=== PATIENT | male | born 1950 | race Caucasian/White ===

== ENCOUNTER 2017-06-22 09:52 | Emergency (ER) | payer MEDICARE, OTHER ==
[2017-06-22] MEDS ORDERED: ASPIRIN 81 MG TABLET, CHEWABLE PO ONE (10:58)
--- NOTE | 2017-06-22 11:00 | ER Document Report ---
ED Medical Screen (RME) - General Chief Complaint: Neck Problem Stated Complaint: PAIN ALL OVER Time Seen by Provider: 06/22/17 10:51 Mode of Arrival: Ambulatory Information source: Patient Notes: Patient presents complaining of left-sided neck pain that radiates to the back of his head and upper back area that started 4 days ago. Patient states that he developed bilateral upper abdominal side pain yesterday. Patient complains of worsening back pain today. Patient states that he developed chest pain while here in the emergency department at 10 AM. Patient does report mild cough. Patient denies any lightheadedness or dizziness. hx: GERD, osteoarthritis TRAVEL OUTSIDE OF THE [place] IN LAST 30 DAYS: No - Related Data Allergies/Adverse Reactions: No Known Allergies Allergy (Verified 06/22/17 10:10) Past Medical History - Social History Chew tobacco use (# tins/day): No Frequency of alcohol use: Occasional Drug Abuse: None Pulmonary Medical History: Denies: Hx Tuberculosis Renal/ Medical History: Denies: Hx Peritoneal Dialysis GI Medical History: Reports: Hx Gastroesophageal Reflux Disease Musculoskeltal Medical History: Reports Hx Arthritis - osteoarthritis Past Surgical History: Reports: Hx Abdominal Surgery - exp. lab, Hx Appendectomy , Hx Orthopedic Surgery - back Physical Exam - Vital signs Vitals: Temp Pulse Resp BP Pulse Ox 98.0 F 95 17 147/81 H 97 06/22/17 09:58 06/22/17 09:58 06/22/17 09:58 06/22/17 09:58 06/22/17 09:58 - HEENT Neck: Other - Left lateral neck discomfort - Respiratory Respiratory status: No respiratory distress Chest status: Tender Course - Vital Signs Vital signs: Temp Pulse Resp BP Pulse Ox 98.0 F 95 17 147/81 H 97 06/22/17 09:58 06/22/17 09:58 06/22/17 09:58 06/22/17 09:58 06/22/17 09:58 Doctor's Discharge - Discharge Referrals: JEREMY NICE MD [Primary Care Provider] - Follow up as needed
--- NOTE | 2017-06-22 11:48 | RADIOLOGY REPORT (SQ) ---
EXAM DESCRIPTION: CHEST PA/LAT COMPLETED DATE/TIME: 06/22/2017 11:19 am REASON FOR STUDY: cp, back pain COMPARISON: October 2013 EXAM PARAMETERS: NUMBER OF VIEWS: two views TECHNIQUE: Digital Frontal and Lateral radiographic views of the chest acquired. RADIATION DOSE: NA LIMITATIONS: Patient has made a shallow inspiration FINDINGS: LUNGS AND PLEURA: No masses or pneumothorax. No pleural effusion. Linear densities are id entified most consistent with subsegmental atelectasis MEDIASTINUM AND HILAR STRUCTURES: No masses or contour abnormalities. HEART AND VASCULAR STRUCTURES: Heart normal size. No evidence for failure. BONES: No acute findings. HARDWARE: None in the chest. OTHER: No other significant finding. IMPRESSION: Linear densities most consistent with subsegmental atelectasis. Remaining lung pardo a re clear. Other findings as noted above TECHNICAL DOCUMENTATION: JOB ID: [id number] [employer]- All Rights Reserved Reading location - IP/workstation name: [email or web address]
[2017-06-22 12:07] LABS: ABSOLUTE BASOPHILS # (AUTO) 0.1 10^3/uL (0.0-0.2); ABSOLUTE EOSINOPHILS # (AUTO) 0.2 10^3/uL (0.0-0.6); ABSOLUTE LYMPHOCYTES (AUTO) 1.4 10^3/uL (0.5-4.7); ABSOLUTE MONOCYTES (AUTO) 1.2 10^3/uL (0.1-1.4); ABSOLUTE NEUT (AUTO) 8.4 10^3/uL (1.7-8.2); BASOPHILS % (AUTO) 0.7 % (0-2); EOSINOPHILS % (AUTO) 1.6 % (0-6); HEMOGLOBIN 13.5 g/dL (13.5-17.0); LYMPHOCYTES % (AUTO) 12.1 % (13-45); MEAN CORPUSCULAR HEMOGLOBIN 30.8 pg (27.0-33.4); MEAN CORPUSCULAR HGB CONC 33.7 g/dL (32.0-36.0); MEAN CORPUSCULAR VOLUME 91 fl (80-97); MONOCYTES % (AUTO) 10.5 % (3-13); PLATELET COUNT 250 10^3/uL (150-450); RED BLOOD COUNT 4.38 10^6/uL (4.35-5.55); RED CELL DISTRIBUTION WIDTH 14.5 % (11.5-14.0); SEGMENTED NEUTROPHILS % (AUTO) 75.1 % (42-78); TOTAL CELLS COUNTED % (AUTO) 100 %; WHITE BLOOD COUNT 11.2 10^3/uL (4.0-10.5)
[2017-06-22 12:15] LABS: ALANINE AMINOTRANSFERASE 23 U/L (21-72); ALBUMIN 4.5 g/dL (3.5-5.0); ALKALINE PHOSPHATASE 38 U/L (38-126); ANION GAP 16 (5-19); ASPARTATE AMINO TRANSFERASE 20 U/L (17-59); BILIRUBIN,DIRECT 0.5 mg/dL (0.0-0.4); BILIRUBIN,TOTAL 1.4 mg/dL (0.2-1.3); BLOOD UREA NITROGEN 24 mg/dL (7-20); CARBON DIOXIDE 24 mmol/L (22-30); CHLORIDE 99 mmol/L (98-107); CREATINE KINASE 42 U/L (55-170); GLUCOSE 105 mg/dL (75-110); SODIUM 139.3 mmol/L (137-145); TOTAL PROTEIN 8.1 g/dL (6.3-8.2)
--- NOTE | 2017-06-22 12:20 | ER Document Report ---
ED General - General Chief Complaint: Neck Problem Stated Complaint: PAIN ALL OVER Time Seen by Provider: 06/22/17 10:51 Mode of Arrival: Ambulatory TRAVEL OUTSIDE OF THE [place] IN LAST 30 DAYS: No - HPI Notes: Patient is a 66-year-old male with a history of acid reflux who presents to the ED complaining of neck and back pain over the last several weeks as well as one incident of chest burning pain about 2 hours ago. Patient states that he did not take his acid reflux medications and that pain mimics his acid reflux when he does not take them. Patient states that the pain has since resolved. Patient states that he primarily feels it after eating and when laying flat. Patient states that he has had neck and back pain in the past and does take Flexeril as needed. Patient states that he has pain in his lower back that radiates around to the sides as well as neck and upper back pain. Patient states that the pain is primarily there with movement. He denies any procedures or injections to his back. Denies any smoking or IV drug use. Denies any history of diabetes or previous spinal abscess. Patient states that he is eating and drinking without any difficulties. He is urinating normally and having normal bowel movements. Has any drug allergies. Denies any headache , fever, URI, sore throat, palpitations, syncope, cough, shortness of breath, wheeze, dyspnea, abdominal pain, nausea/vomiting/diarrhea, urinary retention, dysuria, hematuria, loss of control of bowel or bladder, numbness/tingling, saddle anesthesia, muscle paralysis/weakness, or rash. - Related Data Allergies/Adverse Reactions: No Known Allergies Allergy (Verified 06/22/17 10:10) Past Medical History - General Information source: Patient - Social History Smoking Status: Unknown if Ever Smoked Chew tobacco use (# tins/day): No Frequency of alcohol use: None Drug Abuse: None Family History: Reviewed & Not Pertinent Patient has suicidal ideation: No Patient has homicidal ideation: No Pulmonary Medical History: Denies: Hx Tuberculosis Renal/ Medical History: Denies: Hx Peritoneal Dialysis GI Medical History: Reports: Hx Gastroesophageal Reflux Disease Musculoskeltal Medical History: Reports Hx Arthritis - osteoarthritis Past Surgical History: Reports: Hx Abdominal Surgery - exp. lab, Hx Appendectomy , Hx Orthopedic Surgery - back - Immunizations Hx Pneumococcal Vaccination: 10/25/13 Review of Systems - Review of Systems -: Yes All other systems reviewed and negative Physical Exam - Vital signs Vitals: Temp Pulse Resp BP Pulse Ox 98.0 F 95 17 147/81 H 97 06/22/17 09:58 06/22/17 09:58 06/22/17 09:58 06/22/17 09:58 06/22/17 09:58 - Notes Notes: PHYSICAL EXAMINATION: GENERAL: Well-appearing, well-nourished and in no acute distress. HEAD: Atraumatic, normocephalic. EYES: Pupils equal round and reactive to light, extraocular movements intact, sclera anicteric, conjunctiva are normal. ENT: Nares patent and without discharge. oropharynx clear without exudates. No tonsilar hypertrophy or erythema. Moist mucous membranes. NECK: Normal range of motion, supple without lymphadenopathy. + tenderness to the left c-paraspinal mm extending into the trapezius on the left side. No midline tenderness. Spurling negative. Chest: non-tender. equal rise/fall. LUNGS: Breath sounds clear to auscultation bilaterally and equal. No wheezes rales or rhonchi. HEART: Regular rate and rhythm without murmurs, rubs, gallops. ABDOMEN: Soft, nontender, nondistended abdomen. No guarding, no rebound. No masses appreciated. Normal bowel sounds present. No CVA tenderness bilaterally. No obvious pulsatile mass. Musculoskeletal: LE's b/l: FROM to passive/active. Strength 5+/5. No deficits noted. No bony tenderness of extremities. Back: FROM to passive/active. Strength 5+/5. No vertebral point tenderness, stepoffs, or deformities. No other bony tenderness, erythema, swelling, or ecchymosis. SLR negative b/l. + mild tenderness to the L-paraspinal mm b/l. Mild spasming. No SI jt tenderness. No foot drop Extremities: No cyanosis, clubbing, or edema b/l. Peripheral pulses 2+. Capillary refill less than 2 seconds. NEUROLOGICAL: Normal speech, normal gait. Normal sensory, motor exams. Reflexes 2+ b/l. PSYCH: Normal mood, normal affect. SKIN: Warm, Dry, normal turgor, no rashes or lesions noted. Course - Re-evaluation Re-evalutation: 03/12/18 14:36 Patient is an afebrile, well-hydrated, 66-year-old male who presents to the ED with back pain, neck pain, suspect inflammatory, as well as chest pain unspecified that I suspect is related to his acid reflux. Patient is continues to be asymptomatic for his chest. Vitals are acceptable. PE is otherwise unremarkable. CBC, CMP, lipase, chest x-ray, cardiac enzymes 2/EKG are unremarkable for any acute pathology. Patient was given Decadron IM. Heart score of 3. Wells 0. No other labs or imaging warranted at this time. Low suspicion for any ACS, PE, pneumothorax, pericarditis, dissection, respiratory compromise, severe dehydration, sepsis, meningitis, fracture, expanding/ ruptured AAA, cauda equina syndrome, epidural mass lesion/abscess, herniated disc causing severe spinal stenosis, or other systemic infection at this time. Patient is aware that his condition can change from initial presentation and that he needs monitor symptoms closely for any acute changes. I will send him home with a prescription for naproxen. Patient already has prescription for Flexeril. Recheck with your PCM in 3-5 days. Return to the ED with any worsening/concerning symptoms otherwise as reviewed discharge. Patient is in agreement. - Vital Signs Vital signs: Temp Pulse Resp BP Pulse Ox 98.0 F 95 17 147/81 H 97 06/22/17 09:58 06/22/17 09:58 06/22/17 09:58 06/22/17 09:58 06/22/17 11:34 - Laboratory Result Diagrams: 06/22/17 11:25 06/22/17 11:25 Laboratory results interpreted by me: 06/22/17 06/22/17 11:25 11:25 WBC 11.2 H RDW 14.5 H Lymphocytes % 12.1 L Absolute Neutrophils 8.4 H BUN 24 H Total Bilirubin 1.4 H Direct Bilirubin 0.5 H Creatine Kinase 42 L Discharge - Discharge Clinical Impression: Cervicalgia, Muscle spasm GERD (gastroesophageal reflux disease) Qualifiers: Esophagitis presence: esophagitis presence not specified Qualified Code(s): K21.9 - Gastro-esophageal reflux disease without esophagitis Chest pain, unspecified Qualifiers: Chest pain type: unspecified Qualified Code(s): R07.9 - Chest pain, unspecified Low back pain Qualifiers: Chronicity: acute Back pain laterality: bilateral Sciatica presence: without sciatica Qualified Code(s): M54.5 - Low back pain Condition: Stable Disposition: HOME, SELF-CARE Instructions: Chest Wall Pain ([facility]), Chest Pain of Unclear Cause ([facility]), Reflux Disease (GERD) ([facility]), Stretching Exercises for the Back ([facility]) Additional Instructions: Maintain adequate fluid and food intake Take home medications as directed Low sodium/fat diet Exercise regularly Weight control ice, stretch, warm compress, massage Monitor blood pressure daily and keep a log Monitor symptoms for any acute changes Recheck with your PCM in 3-5 days Consider a follow-up with cardiology Return to the ED with any worsening symptoms and/or development of fever, headache, chest pain, palpitations, syncope, shortness of breath, trouble breathing, abdominal pain, n/v/d, blood in stool/urine, loss of control of bowel /bladder, urinary retention, muscle weakness/paralysis, numbness/tingling, or other worsening symptoms that are concerning to you. Prescriptions: Naproxen 500 mg PO BID PRN #30 tablet PRN Reason: Forms: Elevated Blood Pressure Referrals: JEREMY NICE MD [Primary Care Provider] - Follow up in 3-5 days [facility] [Provider Group] - Follow up as needed ZOHAIB ALVARADO MD [ACTIVE STAFF] - Follow up as needed KRISTINE VILLAR MD [ACTIVE STAFF] - Follow up as needed
[2017-06-22 12:27] LABS: CREATINE KINASE MB 0.34 ng/mL (<4.55)
[2017-06-22 12:30] LABS: TROPONIN I < 0.012 ng/mL
[2017-06-22] MEDS ORDERED: DEXAMETHASONE SOD PHOS INJ 10 MG/1 ML VIAL IV ONE (12:57)
--- NOTE | 2017-06-22 13:17 | EKG REPORT ---
SEVERITY:- ABNORMAL ECG - SINUS RHYTHM INCOMPLETE RIGHT BUNDLE BRANCH BLOCK LEFT VENTRICULAR HYPERTROPHY : Confirmed by: Tutu Thomas MD 22-Jun-2017 13:16:51
[2017-06-22 15:52] VITALS: BP 120/80
== END 2017-06-22 15:19 | disposition home or self-care (01) ==
LOC: ER 09:52
DX: M54.2 Cervicalgia (principal); M62.830 Muscle spasm of back; M54.5 Low back pain; K21.9 Gastro-esophageal reflux disease without esophagitis; R07.9 Chest pain, unspecified
CPT/HCPCS: 93005; 99284; 96374; 36415; 82553; 82550; 85025; 80053; 84484; 71046; 93010; A9270; J1100

== ENCOUNTER → 2017-07-21 | Outpatient (CLI) | payer MEDICARE, OTHER ==
--- NOTE | 2017-07-21 12:25 | RADIOLOGY REPORT (SQ) ---
EXAM DESCRIPTION: MRI CERVICAL SPINE WITHOUT COMPLETED DATE/TIME: 07/21/2017 11:55 am REASON FOR STUDY: RADICULOPATHY CERVICAL REGION M54.12 RADICULOPATHY, CERVICAL REGION COMPARISON: None. TECHNIQUE: Sagittal and Axial imaging includes T1, T2, STIR and gradient echo sequences. LIMITATIONS: None. FINDINGS: ALIGNMENT: Slight degenerative anterolisthesis at C7-T1. VERTEBRAE: Intact. BONE MARROW: Normal. No marrow replacement or reactive changes. DISCS: Multilevel disc disease with disc osteophyte complexes. Individual levels detailed below. HARDWARE: None in the spine. CORD AND BASE OF BRAIN: Normal in size and signal intensity. SOFT TISSUES: No soft tissue masses. C1-C2: No significant spinal stenosis. C2-C3: Mild left foraminal narrowing. C3-C4: Left facet arthropathy and uncovertebral spurring with resultant marked left foraminal stenosi s. At least mild right foraminal narrowing is also present. No cord compression or central stenosis . C4-C5: Uncovertebral spurring with marked right foraminal stenosis. Mild-moderate left foraminal shayna rowing. No cord compression or high-grade central narrowing. C5-C6: Bilateral prominent uncovertebral spurs. Moderate right and moderate -marked left foraminal s tenosis. C6-C7: Broad disc osteophyte complex without cord compression. Prominent uncovertebral spurring with at least moderate left foraminal stenosis. C7-T1: Facet overgrowth. Bilateral foraminal stenosis is grossly moderate. UPPER THORACIC: No central stenosis evident. No suggestion of critical foraminal narrowing allowing for limited assessment. Facet arthropathy is present. OTHER: No other significant finding. IMPRESSION: 1. Multilevel cervical spondylosis. Predominantly foraminal stenosis as above. No evid ence of overt cord compression, fracture or bone lesion. TECHNICAL DOCUMENTATION: JOB ID: [id number] [employer]- All Rights Reserved Reading location - IP/workstation name: [email or web address]
== END ==
LOC: RAD 11:22
PROVIDERS: ATTEND Internal Medicine
DX: M54.12 Radiculopathy, cervical region (principal); M47.892 Other spondylosis, cervical region
CPT/HCPCS: 72141

== ENCOUNTER 2017-08-15 23:43 | Emergency (ER) | payer MEDICARE, OTHER ==
[2017-08-15] MEDS ORDERED: ACETAMINOPHEN 325 MG TABLET PO ONE (23:52)
[2017-08-15 23:53] VITALS: BP 164/93
--- NOTE | 2017-08-16 00:34 | ER Document Report ---
ED General - General Chief Complaint: Arm Pain Stated Complaint: LEFT ARM PAIN TRAVEL OUTSIDE OF THE [place] IN LAST 30 DAYS: No - HPI Notes: C7 He presents today with complaints of left-sided elbow pain that started yesterday. Denies any trauma falling. Worse with time, nothing makes better. Has not tried any fcrt-zep-ivxcoyl medications. Pain is 6 out of 10, throbbing achy. Denies any numbness or tingling down bilateral upper extremities equally. Has not tried any ice or elevation. Denies fevers, chills, chest pain,palpitations, shortness of breath, dyspnea, nausea, vomiting, diarrhea, abdominal pain, hematuria,blurred vision, double vision, loss of vision, speech changes, LH, dizziness, syncope, headaches, wheezing, ST, URI, neck pain, weakness, bowel or bladder dysfunction, saddle anesthesia, numbness or tingling in bilateral upper or lower extremities equally, muscle paralysis, weakness in bilateral upper or lower extremities equally or rash. Denies IV drug use. - Related Data Allergies/Adverse Reactions: No Known Allergies Allergy (Verified 06/22/17 10:10) Past Medical History - General Information source: Patient - Social History Smoking Status: Unknown if Ever Smoked Chew tobacco use (# tins/day): No Frequency of alcohol use: Occasional Drug Abuse: None Family History: Reviewed & Not Pertinent Patient has suicidal ideation: No Patient has homicidal ideation: No Pulmonary Medical History: Denies: Hx Tuberculosis Renal/ Medical History: Denies: Hx Peritoneal Dialysis GI Medical History: Reports: Hx Gastroesophageal Reflux Disease Musculoskeltal Medical History: Reports Hx Arthritis - osteoarthritis Past Surgical History: Reports: Hx Abdominal Surgery - exp. lab, Hx Appendectomy , Hx Orthopedic Surgery - back - Immunizations Hx Pneumococcal Vaccination: 02/04/13 Review of Systems - Review of Systems Constitutional: No symptoms reported EENT: No symptoms reported Cardiovascular: No symptoms reported Respiratory: No symptoms reported Gastrointestinal: No symptoms reported Genitourinary: No symptoms reported Male Genitourinary: No symptoms reported Musculoskeletal: See HPI Skin: No symptoms reported Hematologic/Lymphatic: No symptoms reported Neurological/Psychological: No symptoms reported Physical Exam - Vital signs Vitals: Temp Pulse Resp BP Pulse Ox 98.7 F 71 16 164/93 H 97 08/15/17 23:51 08/15/17 23:51 08/15/17 23:51 08/15/17 23:51 08/15/17 23:51 - Notes Notes: PHYSICAL EXAMINATION: GENERAL: Well-appearing, well-nourished and in no acute distress. HEAD: Atraumatic, normocephalic. EYES: Pupils equal round and reactive to light, extraocular movements intact, sclera anicteric, conjunctiva are normal. ENT: Nares patent, oropharynx clear without exudates. Moist mucous membranes. NECK: Normal range of motion, supple without lymphadenopathy LUNGS: Breath sounds clear to auscultation bilaterally and equal. No wheezes rales or rhonchi. HEART: Regular rate and rhythm without murmurs ABDOMEN: Soft, nontender, nondistended abdomen. No guarding, no rebound. No masses appreciated. Musculoskeletal: Normal range of motion, no pitting or edema. No cyanosis. left elbow pain with with abduction and flexion. no pain with supination, pronation, extension. 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 APROM in shoulder. DTR + 2 in BUE equally. Noted crepitus with APROM in elbow. negative drop arm, neer sign, fowler test, slightly positive impingement sign all on right. Full motor and sensory function in LAN. No vascular compromise. No noted swelling, abrasions, ecchymosis, lacerations, scars of recent trauma. No erythema or induration noted to area. Intact median, ulnar and radial nerves bilaterally and equally. NEUROLOGICAL: Cranial nerves grossly intact. Normal speech, normal gait. Normal sensory, motor exams PSYCH: Normal mood, normal affect. SKIN: Warm, Dry, normal turgor, no rashes or lesions noted. Course - Re-evaluation Re-evalutation: 08/16/17 00:58 66-year-old male presents for evaluation of left elbow pain. Vitals stable, afebrile in no distress. X-ray of left elbow shows Wear sling as directed, take off throughout the day to prevent contractures. Follow-up with eap specialist within 3 days. Take [id number] ibuprofen and Tylenol as needed for pain. Apply heat 20 minutes on 20 minutes off several times a day. Elevate above the level of heart. I have reevaluated this patient multiple times and no significant life threatening changes, no signs of toxicity, sepsis or peritonitis are noted. The patient and I have discussed the diagnosis and risks, and we agree with discharging home and close follow-up. We also discussed returning to the Emergency Department immediately if new or worsening symptoms occur with the understanding that symptoms and presentations can change. At this time will discharge with return precautions and follow-up recommendations. Verbal discharge instructions given a the bedside and opportunity for questions given. We have discussed the symptoms which are most concerning (e.g., saddle anesthesia, urinary or bowel incontinence or retention, changing or worsening pain) that necessitate immediate return. Medication warnings reviewed. Patient is in agreement with this plan and has verbalized understanding of return precautions and the need for primary care follow-up in the next 24-72 hours. Patient verbalized understanding of plan of care and agree with plan of care. ]]] - Vital Signs Vital signs: Temp Pulse Resp BP Pulse Ox 98.7 F 71 16 164/93 H 97 08/15/17 23:51 08/15/17 23:51 08/15/17 23:51 08/15/17 23:51 08/15/17 23:51 Discharge - Discharge Clinical Impression: Left elbow pain, Effusion, left elbow Condition: Good Disposition: HOME, SELF-CARE Instructions: Elbow Effusion ([facility]) Additional Instructions: Follow-up with eap specialist within 3 days Elbow Effusion Your elbow shows no sign of fracture. However, there is fluid (probably blood) within the elbow joint. This may be due to a subtle cartilage injury or sprain, but it may also be a sign of a hidden fracture at the elbow. The usual treatment is to immobilize the elbow, and treat it exactly as if it were broken. Then in a few days, the joint will be rechecked by the physician for evidence of a hidden fracture. This follow-up is important -- the elbow must be checked as often as necessary until the physician is sure there is no broken bone. You should call the doctor or return at once if the elbow or forearm becomes severely painful or swollen, or if you become numb in the arm or hand. Prescriptions: Prednisolone 5 ml PO DAILY #15 ml Referrals: JEREMY NICE MD [Primary Care Provider] - Follow up as needed LASHAWN SELF MD [ACTIVE STAFF] - Follow up in 3-5 days
[2017-08-16] MEDS ORDERED: HYDROCODONE/ACETAMINOPHEN 5-325 MG (6 TAB/ER DISP) PO PRN (01:50)
--- NOTE | 2017-08-16 04:44 | RADIOLOGY REPORT (SQ) ---
EXAM DESCRIPTION: ELBOW LEFT OVER 2 VIEWS CLINICAL HISTORY: elbox pain COMPARISON: 08/13/2015 FINDINGS: 3 views of the left elbow. No acute fracture or dislocation. Osteopenia. Degenerative change of the elbow. Possible elbow joint effusion. IMPRESSION: 1. No acute fracture. 2. Joint effusion with degenerative change.
== END 2017-08-16 02:19 | disposition home or self-care (01) ==
LOC: ER 23:43
DX: M25.522 Pain in left elbow (principal); M25.422 Effusion, left elbow; M79.602 Pain in left arm
CPT/HCPCS: 99283; 73080; A9270 ×2

== ENCOUNTER → 2018-07-08 | Day surgery (SDC) | payer MEDICARE, OTHER ==
[~2018-07-08] MED LIST: BUPIVACAINE HCL 0.5 % INJ/PF 30 ML SDV ONE; LIDOCAINE 0.5% INJ-PF (5 MG/ML) 50 ML SDV ONE; LIDOCAINE 1% INJ-PF (10 MG/ML) 30 ML SDV ONE
--- NOTE | 2018-07-08 08:42 | Operative Report ---
PROCEDURE: KNEE RADIOFREQUENCY left under ultrasound guidance Preoperative Diagnosis: Left knee osteoarthritis Postoperative Diagnosis: Left knee osteoarthritis 1. Superolateral genicular branch from the vastus lateralis 2. Superomedial genicular branch from the vastus medialis 3. Inferomedial genicular branch from the saphenous nerve 4. Medial retinacular branch from the vastus intermedius DATE OF PROCEDURE: July 08, 2018 ANESTHESIA: Local anesthesia COMPLICATIONS: None reported PROCEDURE IN DETAIL: Hx/PE/meds/allergies/applicable labs reviewed. No changes and no contraindications were found. Full description of the procedure was provided including benefits as well as possible complications including transient increased pain, stomach irritation, mood alteration, transient weakness or parasthesias as well as more serious nerve injury, bleeding, infection or allergic reaction. Informed consent was obtained and documented. The patient was brought to the procedure room and placed on the exam table in a comfortable supine position. The place for needle placement was obtained by manual palpation with ultrasound confirmation. The sterile field was prepared by chloroprep and sterile drapes. Local anesthesia superficial and deep was provided by local infiltration of 2% lidocaine. A 17g 50 mm radiofrequency introducer needle with a 4 mm active tip was placed overlying the left knee joint and using ultrasound guidance the needle was advanced to a bony endpoint on the superiolateral portion of the femoral condyle of the left knee. A second needle was advanced to a bony endpoint on the superiomedial portion of the femoral condyle. A third needle was then placed over the inferiomedial portion of the tibial condyle until a bony endpoint was met. 4th needle placed 3mm above the patella with the tip in contact with the Medial retinacular branch from the vastus intermedius. Attempted aspiration yielded no blood. Transverse ultrasound views showed all the needles at 50% depth of the femur and tibia. Motor stimulation was tested at 2.0 volts with no leg movement. Images were saved in AP and lateral. A mixture consisting of 0.5% bupivacaine was slowly injected. Then a radiofrequency ablation of each of the geniculate nerves were done at 80 degrees Celsius for 2 minutes and 30 seconds each. The needles were withdrawn. The patient tolerated the procedure well. After observation the patient was discharged with instructions and follow up. They were also provided contact information to call regarding any concerning symptoms or questions. IMPRESSION: 1. Successful geniculate left knee radiofrequency ablation was performed. 2. The patient was given prescription of home medicines. 3. RTC in 1-2 week(s).
== END ==
LOC: RAD 07:51
PROVIDERS: ATTEND Family Medicine
DX: M17.12 Unilateral primary osteoarthritis, left knee (principal)
CPT/HCPCS: 64640 ×4; J3490 ×2

== ENCOUNTER → 2019-04-21 | Outpatient (CLI) | payer MEDICARE, OTHER ==
--- NOTE | 2019-04-21 13:46 | RADIOLOGY REPORT (SQ) ---
EXAM DESCRIPTION: BARIUM SWALLOW ESOPHAGUS COMPLETED DATE/TIME: 04/21/2019 9:05 am REASON FOR STUDY: DYSPHAGIA, UNSPECIFIED R13.10 DYSPHAGIA, UNSPECIFIED COMPARISON: None. TECHNIQUE: Under fluoroscopic guidance, patient ingested effervescent granules followed by thick and thin barium. Fluoroscopic spot images and routine radiographic images acquired and stored on PACS. 12 MM BARIUM TABLET GIVEN: Tablet passed easily through the esophagus and into the stomach without de lay. LIMITATIONS: None. FLUOROSCOPY TIME: FLUORO TIME: 2.4 minutes 10 images saved to PACS. FINDINGS: NEUROMUSCULAR COORDINATION OF SWALLOW: Normal. No aspiration. ESOPHAGEAL MOTILITY: Normal peristalsis. No esophageal spasm. ESOPHAGEAL MUCOSA: Normal mucosa without masses or ulceration. GASTRO-ESOPHAGEAL JUNCTION: Small hiatal hernia present. Gastroesophageal reflux to the level of the clavicles demonstrated. NON-GI TRACT STRUCTURES: No significant finding. OTHER: No other significant finding. IMPRESSION: SMALL HIATAL HERNIA WITH GASTROESOPHAGEAL REFLUX. OTHERWISE UNREMARKABLE STUDY. RECOMMENDATION: None COMMENT: None Quality ID [id number]: Final reports for procedures using fluoroscopy that document radiation exposure elizabeth bharathi, or exposure time and number of fluorographic images (if radiation exposure indices are not avail able) TECHNICAL DOCUMENTATION: JOB ID: [id number] [employer]- All Rights Reserved Reading location - IP/workstation name: [email or web address]
== END ==
LOC: RAD 08:29
PROVIDERS: ATTEND Internal Medicine
DX: K21.9 Gastro-esophageal reflux disease without esophagitis (principal); K44.9 Diaphragmatic hernia without obstruction or gangrene; R13.10 Dysphagia, unspecified
CPT/HCPCS: 74220

== ENCOUNTER → 2019-09-29 | Outpatient (CLI) | payer MEDICARE, OTHER ==
--- NOTE | 2019-09-29 17:31 | RADIOLOGY REPORT (SQ) ---
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 Images stored on PACS. LIMITATIONS: None. FINDINGS: ANATOMY: No anomalies. Normal vascular flow voids. Pituitary fossa normal. CSF SPACES: Normal in size and contour. No hemorrhage. CEREBRUM: Sulci and gyri normal in size and contour. Normal white matter signal on FLAIR imaging. No evidence of hemorrhage, mass, or extraaxial fluid collection. POSTERIOR FOSSA: No signal alteration. No hemorrhage. No edema, masses or mass effect. Internal rodger tory canals, cerebello-pontine angles, mastoids normal. DIFFUSION IMAGING: Negative for acute or sub-acute infarction. ORBITS: No masses. Globes normal. PARANASAL SINUSES: No fluid levels. Mucosa normal. OTHER: No other significant finding. IMPRESSION: NORMAL MRI OF THE BRAIN WITHOUT INTRAVENOUS GADOLINIUM CONTRAST. EVIDENCE OF ACUTE STROKE: NO. TECHNICAL DOCUMENTATION: JOB ID: [id number] 2010 [employer]- All Rights Reserved Reading location - IP/workstation name: [email or web address]
== END ==
LOC: RAD 14:46
PROVIDERS: ATTEND Internal Medicine
DX: G46.4 Cerebellar stroke syndrome (principal)
CPT/HCPCS: 70551

== ENCOUNTER 2020-02-01 08:46 | Emergency (ER) | payer MEDICARE, OTHER ==
[2020-02-01] MEDS ORDERED: DIPH/PERTUSS(ACELL)/TETANUS VAC/PF 0.5 ML SYR (>=10YO) IM ONE (10:34)
[2020-02-01] MEDS ORDERED: AMOXICILLIN TR/POT CLAVULANATE 875-125 MG TAB PO ONE (10:34)
[2020-02-01] MEDS ORDERED: OXYCODONE-ACETAMINOPHEN 5-325 MG TABLET PO ONE (10:38)
[2020-02-01 11:45] VITALS: BP 160/80
--- NOTE | 2020-02-02 10:40 | ER Document Report ---
Entered by ALLAN COELHO SCRIBE 02/01/20 1034 Acting as scribe for:TERENCE CORRALES MD ED Animal Bite - General Chief Complaint: Dog Bite Stated Complaint: DOG BITE/LEFT FOREARM Time Seen by Provider: 02/01/20 10:22 Primary Care Provider: JEREMY NICE MD [Primary Care Provider] - Follow up as needed Mode of Arrival: Ambulatory Information source: Patient Notes: 69 Y.O. male patient comes to the ER for unprovoked dog bite to the left forearm. Reports neighbor's dog bit him. Pt thinks his last tetanus shot is more than 10 years ago. Denies numbness or tingling to the hand and fingers. Does have pain in the affected muscle region on clinching fist and extending the wrist. TRAVEL OUTSIDE OF THE [place] IN LAST 30 DAYS: No - Related Data Allergies/Adverse Reactions: No Known Allergies Allergy (Verified 06/22/17 10:10) Home Medications: omeprazole. ASA Past Medical History - General Information source: Patient - Social History Smoking Status: Former Smoker - quit 6 years ago Cigarette use (# per day): No Chew tobacco use (# tins/day): No Smoking Education Provided: No Frequency of alcohol use: None Drug Abuse: None Family History: Reviewed & Not Pertinent Patient has homicidal ideation: No GI Medical History: Reports: Hx Gastroesophageal Reflux Disease Musculoskeletal Medical History: Reports Hx Arthritis - osteoarthritis Past Surgical History: Reports: Hx Abdominal Surgery - exp. lap, Hx Appendectomy, Hx Orthopedic Surgery - back - Immunizations Hx Pneumococcal Vaccination: 02/04/13 Review of Systems - Review of Systems Constitutional: No symptoms reported EENT: No symptoms reported Cardiovascular: No symptoms reported Respiratory: No symptoms reported Gastrointestinal: No symptoms reported Genitourinary: No symptoms reported Male Genitourinary: No symptoms reported Musculoskeletal: No symptoms reported Skin: See HPI, Other - dog bite to left lateral forearm Hematologic/Lymphatic: No symptoms reported Neurological/Psychological: No symptoms reported -: Yes All other systems reviewed and negative Physical Exam - Vital signs Vitals: Temp Pulse Resp BP Pulse Ox 97.8 F 73 18 174/105 H 98 02/01/20 08:52 02/01/20 08:52 02/01/20 08:52 02/01/20 08:52 02/01/20 08:52 - Notes Notes: Physical Exam: General: Alert, appears well. HEENT: Normocephalic. Atraumatic. PERRL. Extraocular movements intact. Oropharynx clear. Neck: Supple. Non-tender. Respiratory: No respiratory distress. Coarse breath sounds bilaterally. Cardiovascular: Regular rate and rhythm. Abdominal: Normal Inspection. Non-tender. No distension. Normal Bowel Sounds. Back: No gross abnormalities. Extremities: Moves all four extremities. Upper extremities: Left lateral forearm there is a crush wound to dorsal ulnar forearm extensor muscles. There are a few small puncture wounds and skin tears. Bleeding is control. Lower extremities: Normal inspection. No edema. Normal ROM. Neurological: Normal cognition. AAOx4. Normal speech. Psychological: Normal affect. Normal Mood. Skin: Warm. Dry. Normal color. Course - Re-evaluation Re-evalutation: 02/06/20 21:57 Puncture wounds were irrigated with NS and skin cleaned with sureclens by the nurse. - Vital Signs Vital signs: Temp Pulse Resp BP Pulse Ox 98.2 F 80 18 160/80 H 99 02/01/20 11:44 02/01/20 11:44 02/01/20 11:44 02/01/20 11:44 02/01/20 11:44 Discharge - Discharge Clinical Impression: Dog bite of left arm Qualifiers: Encounter type: initial encounter Qualified Code(s): S41.152A - Open bite of left upper arm, initial encounter; W54.0XXA - Bitten by dog, initial encounter Condition: Stable Disposition: HOME, SELF-CARE Additional Instructions: Animal Bites Animal bites are often heavily contaminated with bacteria. In spite of thorough cleansing and proper treatment, these wounds frequently become infected. Bite wounds of the hands are especially prone to complications. Bites are dressed, if possible. Large wounds may require suturing after internal cleansing. Because of infection risk, some large wounds must remain unstitched. Your doctor is trained to advise you on the best treatment for your bite. Call the doctor at once if the wound becomes red, swollen, warm, increasingly painful, or if it begins to drain. Danger signs also include red streaks up the involved extremity, swollen glands in the groin or under the arm, or fever and chills. The risk of rabies from domestic animals is very low. Bats, sick animals, and wild animals may expose you to rabies. The physician, or the health department, will inform you if you will need to receive the rabies vaccine. Elevate your hand and arm above your heart all the time. Take medications as prescribed. Keep the wounds clean and dressed. Return to the emergency room for recheck if you have any signs of infection developing. RETURN TO THE EMERGENCY ROOM IF ANY NEW OR WORSENING SYMPTOMS. Prescriptions: Amoxicillin/Potassium Clav [Augmentin 875-125 Tablet] 1 tab PO BID #20 tab Oxycodone HCl/Acetaminophen [Percocet 5-325 mg Tablet] 1 tab PO ASDIR PRN #12 tablet PRN Reason: Referrals: JEREMY NICE MD [Primary Care Provider] - Follow up as needed I personally performed the services described in the documentation, reviewed and edited the documentation which was dictated to the scribe in my presence, and it accurately records my words and actions.
== END 2020-02-01 11:44 | disposition home or self-care (01) ==
LOC: ER 08:46
DX: S51.852A Open bite of left forearm, initial encounter (principal); W54.0XXA Bitten by dog, initial encounter; Y92.009 Unspecified place in unspecified non-institutional (private) residence as the place of occurrence of the external cause; K21.9 Gastro-esophageal reflux disease without esophagitis; Z79.82 Long term (current) use of aspirin; Z79.899 Other long term (current) drug therapy; Z23 Encounter for immunization; Z87.891 Personal history of nicotine dependence
CPT/HCPCS: 99284; 96372; 90715; A9270; J3490

== ENCOUNTER → 2020-03-13 | Outpatient (CLI) | payer MEDICARE, OTHER ==
--- NOTE | 2020-03-13 17:27 | RADIOLOGY REPORT (SQ) ---
EXAM DESCRIPTION: CT CHEST WITH IMAGES COMPLETED DATE/TIME: 03/13/2020 4:31 pm REASON FOR STUDY: R04.2 HEMOPTYSIS R04.2 HEMOPTYSIS COMPARISON: 2013 TECHNIQUE: CT scan of the chest performed using helical scanning technique with dynamic intravenous contrast injection. Images reviewed with lung, soft tissue and bone windows. Reconstructed coronal and sagittal MPR and MIP images reviewed. All images stored on PACS. All CT scanners at this facility use dose modulation, iterative reconstruction, and/or weight based d osing when appropriate to reduce radiation dose to as low as reasonably achievable (ALARA). [facility]: Dose Right [facility]: CareDose [facility]: Dose Right [facility]: Teradose 4D [facility]: [place]et CONTRAST TYPE AND DOSE: contrast/concentration: Isovue 350.00 mmol/ml; Total Contrast Delivered: 80. 0 ml; Total Saline Delivered: 55.0 ml RENAL FUNCTION: Creatinine 1.1 RADIATION DOSE: CT Rad equipment meets quality standard of care and radiation dose reduction techniq ues were employed. CTDIvol: 6.9 mGy. DLP: 281 mGy-cm. . LIMITATIONS: None. FINDINGS: LUNGS AND PLEURA: No opacities, nodules, masses. No pneumothorax. No effusions. HILAR AND MEDIASTINAL STRUCTURES: No identified masses or abnormal nodes. HEART AND VASCULAR STRUCTURES: No aneurysm or dissection. No central pulmonary emboli. No pericardi al effusion. HARDWARE: None in the chest. UPPER ABDOMEN: No significant findings. Limited exam. THYROID AND OTHER SOFT TISSUES: No masses. No adenopathy. BONES: No significant finding. OTHER: No other significant finding. IMPRESSION: NORMAL CT OF THE CHEST WITH IV CONTRAST. TECHNICAL DOCUMENTATION: JOB ID: [id number] Quality ID # [id number]: Final reports with documentation of one or more dose reduction techniques (e.g., Au tomated exposure control, adjustment of the mA and/or kV according to patient size, use of iterative reconstruction technique) 2010 [employer]- All Rights Reserved Reading location - IP/workstation name: [email or web address]
== END ==
LOC: RAD 08:00
PROVIDERS: ATTEND Internal Medicine
DX: R04.2 Hemoptysis (principal)
CPT/HCPCS: 71260